=== PATIENT | female | born 1960 | race African-American/Black ===

== ENCOUNTER 2017-03-14 23:13 | Emergency (ER) | payer BC ==
[~2017-03-14] VITALS: Ht 165.1 cm; Wt 93.0 kg
[~2017-03-14 23:13] MED LIST: AMARYL4 MG PO; AMLODIPINE BESY10 MG PO; BENECALORI7.5 KCAL/1 PO; BISACODYL SUPP10 MG RECTAL; BUTALB-APAP-CA1 EACH PO; CARVEDILOL12.5 MG PO; CELEBREX 200 M200 M1 PO; CITRATE OF MAG296 ML PO; DIFLUCAN50 MG PO; GLIMEPIRIDE4 MG PO; HYDROCODONE-AP1 EAC6 PO; KEFLEX500 MG PO; LEVEMIR SUBQ; LIPITOR40 MG PO; LISINOPRIL5 MG PO; NITROGLYCERIN0.4 MG SUBLING; NITROSTAT0.4 MG SUBLING; PLAVIX 75 MG TA75 M1 PO; VIMPAT200 MG PO; XANAX 1 MG TABLE1 MG PO; ZOFRAN ODT4 MG PO
[2017-03-14 23:37] LABS: HEMATOCRIT 37.7 % (37.0-47.0); HEMOGLOBIN 12.9 gm/dL (12.0-15.0); MCH 25.8 pg (26.0-34.0); MCHC 34.3 g/dL (28.0-37.0); MCV 75.3 fL (80.0-100.0); MPV 7.8 fl. (7.2-11.1); NUCLEATED RBCS 0 /100WBC; PLATELET COUNT* 188 thou/uL (150-400); RDW-CV 14.3 % (10.5-14.5)
[2017-03-14 23:49] LABS: CALCIUM 8.6 mg/dL (8.5-10.1); CREATININE 0.9 mg/dL (0.6-1.3); POTASSIUM 3.8 mmol/L (3.5-5.1)
[2017-03-14 23:54] LABS: ALBUMIN 3.6 g/dL (3.4-5.0); TOTAL BILIRUBIN 0.4 mg/dL (<0.1-1.0); TOTAL PROTEIN 7.4 g/dL (6.4-8.2)
[2017-03-14 23:58] LABS: ABSOLUTE EOSINOPHILS 0.2 thou/uL (0.0-0.7); ABSOLUTE LYMPHOCYTES 0.7 thou/uL (0.8-5.3); ABSOLUTE MONOCYTES 0.3 thou/uL (0.0-1.2); ABSOLUTE NEUTROPHILS 8.8 thou/uL (1.6-8.1); ANISOCYTOSIS 1+; MICROCYTES 1+; PLATELET ESTIMATE ADEQUATE
[2017-03-15] LABS: INFLUENZA A ANTIGEN None Detected (None Detect); INFLUENZA B ANTIGEN None Detected (None Detect)
[2017-03-15] MEDS ORDERED: TUSSIONEX PENN115 ML PO (00:28)
[2017-03-15] MEDS ORDERED: ZOFRAN ODT4 MG PO (00:28)
[2017-03-15 00:53] VITALS: BP 143/61
== END 2017-03-15 00:56 | disposition home or self-care (01) ==
LOC: M.ERS 23:13
PROVIDERS: Emergency Medicine
DX: J06.9 Acute upper respiratory infection, unspecified (principal); I25.2 Old myocardial infarction; E11.9 Type 2 diabetes mellitus without complications; I10 Essential (primary) hypertension; Z90.710 Acquired absence of both cervix and uterus; Z98.890 Other specified postprocedural states; Z88.0 Allergy status to penicillin; Z88.6 Allergy status to analgesic agent

== ENCOUNTER 2017-10-12 19:21 | Emergency (ER) | payer BC ==
[~2017-10-12] VITALS: Ht 165.1 cm; Wt 95.3 kg
[~2017-10-12 19:21] MED LIST changes: +TUSSIONEX PENN115 ML PO
[2017-10-12] MEDS ORDERED: IBUPROFEN 600600 M1 PO (20:08)
[2017-10-12 20:22] VITALS: BP 178/91
== END 2017-10-12 20:24 | disposition home or self-care (01) ==
LOC: M.ERS 19:21
DX: S63.8X1A Sprain of other part of right wrist and hand, initial encounter (principal); G40.909 Epilepsy, unspecified, not intractable, without status epilepticus; I10 Essential (primary) hypertension; E11.9 Type 2 diabetes mellitus without complications; Z95.5 Presence of coronary angioplasty implant and graft; Z90.710 Acquired absence of both cervix and uterus; Z88.1 Allergy status to other antibiotic agents; Z88.6 Allergy status to analgesic agent; X50.9XXA Other and unspecified overexertion or strenuous movements or postures, initial encounter; Y93.89 Activity, other specified; Y92.89 Other specified places as the place of occurrence of the external cause; Y99.0 Civilian activity done for income or pay

== ENCOUNTER 2017-12-23 13:39 | Observation (INO) | payer BC ==
[~2017-12-23] VITALS: Ht 165.1 cm; Wt 95.7 kg
[~2017-12-23 13:39] MED LIST changes: +IBUPROFEN 600600 M1 PO
[2017-12-23 13:49] VITALS: BP 202/92
[2017-12-23 14:06] LABS: URINE BILIRUBIN NEGATIVE (Negative); URINE BLOOD 1+ (Negative); URINE CLARITY CLEAR; URINE COLOR YELLOW; URINE GLUCOSE-RANDOM NEGATIVE (Negative); URINE KETONES NEGATIVE (Negative); URINE LEUKOCYTES-REFLEX 1+ (Negative); URINE NITRITE-REFLEX NEGATIVE (Negative); URINE PROTEIN 2+ (Negative); URINE UROBILINOGEN 0.2 E.U./dl (0.2-1.0)
[2017-12-23] MEDS ORDERED: LISINOPRIL20 MG PO (14:06)
[2017-12-23 14:15] LABS: SQUAMOUS 0-3 Few /LPF (0-3)
[2017-12-23 14:15] LABS: ABSOLUTE BASOPHILS 0.1 thou/uL (0.0-0.2); ABSOLUTE EOSINOPHILS 0.3 thou/uL (0.0-0.7); ABSOLUTE LYMPHOCYTES 3.4 thou/uL (0.8-5.3); ABSOLUTE MONOCYTES 0.5 thou/uL (0.0-1.2); ABSOLUTE NEUTROPHILS 5.7 thou/uL (1.6-8.1); BASOPHILS 1.4 %; EOSINOPHILS 3.2 %; HEMATOCRIT 39.8 % (37.0-47.0); HEMOGLOBIN 13.3 gm/dL (12.0-15.0); LYMPHOCYTES 33.9 %; MCH 25.6 pg (26.0-34.0); MCHC 33.5 g/dL (28.0-37.0); MCV 76.4 fL (80.0-100.0); MPV 7.6 fl. (7.2-11.1); NUCLEATED RBCS 0 /100WBC; PLATELET COUNT* 208 thou/uL (150-400); POLYS 56.5 %; RBC 5.22 mil/uL (4.20-5.00); RDW-CV 14.7 % (10.5-14.5); WBC 10.1 thou/uL (4.0-11.0)
[2017-12-23 14:16] LABS: BACTERIA-REFLEX None Seen /HPF (None Seen); CASTS None Seen /LPF (None Seen); CRYSTALS None Seen /LPF (None Seen); MUCUS 4-6 Moderate strn/LPF (None Seen); URINE RBC 0-2 Rare /HPF (0-2); URINE WBC-REFLEX 0-5 Rare /HPF (0-5)
[2017-12-23 14:35] LABS: ANION GAP 5 mmol/L (7-16); BUN 13 mg/dL (7-18); CHLORIDE 103 mmol/L (98-107); CO2 29 mmol/L (21-32); CREATININE 0.8 mg/dL (0.6-1.3); GLUCOSE 105 mg/dL (70-99); POTASSIUM 3.4 mmol/L (3.5-5.1); SODIUM 137 mmol/L (136-145)
[2017-12-23 14:46] LABS: ALBUMIN 3.5 g/dL (3.4-5.0); ALKALINE PHOSPHATASE 95 U/L (46-116); LIPASE 105 U/L (73-393); MAGNESIUM 1.9 mg/dL (1.8-2.4); NT-PRO BRAIN NAT PEPTIDE 287 pg/mL (<300); SGOT 17 U/L (15-37); SGPT 19 U/L (30-65); TOTAL BILIRUBIN 0.2 mg/dL (<0.1-1.0); TOTAL PROTEIN 7.4 g/dL (6.4-8.2); TROPONIN-I LEVEL <0.06 ng/mL (<0.06)
--- NOTE | 2017-12-23 17:30 | EKG ---
[place] [address] ELECTROCARDIOGRAM REPORT Name: NANCY ESPINOZA Room: [place] [address] ADM IN [facility].#: [id number] Admission: 12/23/17 Attend Phys: Coretta Riggins Discharge: Date of : 56 Report #: [id number] THIS REPORT FOR: //name// [facility] ED Test Date: 2017-12-23 Test Time: 14:14:35 Pat Name: NANCY ESPINOZA Department: Room: [facility] Gender: F Radiation Safety Officer: Rubin PAULINO : 1960 Requested By: Jimy Elliott Order Number: [id number] MD: Beltran Laird Measurements Intervals [place] Rate: 66 P: 30 WV: 218 QRS: 10 QRSD: 88 T: 205 QT: 396 QTc: 415 Interpretive Statements Sinus rhythm Prolonged WV interval Probable left atrial enlargement LVH with secondary repolarization abnormality Anterior ST elevation, probably due to LVH Compared to ECG 06/25/2016 09:09:55 Left ventricular hypertrophy now present Early repolarization now present ST (T wave) deviation now present T-wave abnormality no longer present Electronically Signed On 12-23-2017 17:30:24 CDT by Beltran Laird [email or web address] <ELECTRONICALLY SIGNED> By: Beltran Laird MD, FAC 12/23/17 1730 1414 1414 Beltran Laird MD, [facility] /EPI
[2017-12-23 20:47] VITALS: BP 192/78
[2017-12-23 21:00] VITALS: BP 188/89
[2017-12-24] VITALS (7 sets, daily range): BP systolic 139–173; BP diastolic 61–72
--- NOTE | 2017-12-24 16:55 | 2DMMODE ---
[place] [address] 2 D/M-MODE ECHOCARDIOGRAM Name: NANCY ESPINOZA Room: [address] IN [facility]#: [id number] Admission: 12/23/17 Attend Phys: Chriss Hull Discharge: Date of : 56 Date of Service: 12/24/17 1655 Report #: [id number] THIS REPORT FOR: //name// APPROVED REPORT Study performed: 12/24/2017 16:13:27 EXAM: Comprehensive 2D, Doppler, and color-flow Echocardiogram Patient Location: In-Patient Room #: [facility] Status: routine BSA: 2.02 HR: 69 bpm BP: 150/68 mmHg Rhythm: NSR Other Information Study Quality: Good Indications CAD Hypertension/HDD 2D Dimensions IVSd: 15.16 (7-11mm) LVOT Diam: 21.01 (18-24mm) LVDd: 43.57 mm PWd: 13.36 (7-11mm) Ascending Ao: 30.05 (22-36mm) LVDs: 28.06 (25-40mm) Aortic Root: 33.15 mm Volumes Left Atrial Volume (Systole) LA ESV Index: 41.40 mL/m2 Aortic Valve AoV Peak Jefferson.: 1.67 m/s AO Peak Gr.: 11.13 mmHg LVOT Max P.75 mmHg AO Mean Gr.: 6.04 mmHg LVOT Mean P.00 mmHg LVOT Max V: 1.09 m/s AO V2 VTI: 34.27 cm LVOT Mean V: 0.63 m/s JATINDER (VTI): 2.24 cm2 LVOT V1 VTI: 22.11 cm Mitral Valve MV Decel. Time: 272.63 ms MV PHT: 79[place]06 [place] [address] 2 D/M-MODE ECHOCARDIOGRAM Name: NANCY ESPINOZA Room: [address]#: [id number] Admission: 12/23/17 Attend Phys: Chriss Hull Discharge: Date of : 56 Date of Service: 12/24/17 1655 Report #: [id number] MVA (PHT): 2.78 cm2 TDI Medial E' Jefferson.: 0.07 m/s Lateral E' Jefferson.: 0.09 m/s Pulmonary Valve PV Peak Jefferson.: 0.93 m/s PV Peak Gr.: 3.43 mmHg Left Ventricle The left ventricle is normal size. There is normal LV segmental wall motion. Moderate concentric left ventricular hypertrophy. Left ventricular systolic function is normal. The left ventricular ejection fraction is within the normal range. LVEF is 55-60%. Grade I - abnormal relaxation pattern. Right Ventricle The right ventricle is normal size. The right ventricular systolic function is normal. Atria Left atrium is mildly dilated. The right atrium size is normal. Aortic Valve The aortic valve is normal in structure. No aortic regurgitation is present. There is no aortic valvular stenosis. Mitral Valve There is mitral annular calcification. Mild mitral regurgitation. No evidence of mitral valve stenosis. Tricuspid Valve The tricuspid valve is normal in structure. There is no tricuspid valve regurgitation noted. Unable to assess PA pressure. Pulmonic Valve The pulmonary valve is normal in structure. There is no pulmonic valvular regurgitation. Great Vessels The aortic root is normal in size. IVC is normal in size and collapses >50% with inspiration. Pericardium There [place] [address] 2 D/M-MODE ECHOCARDIOGRAM Name: NANCY ESPINOZA Room: [address] IN [facility]#: [id number] Admission: 12/23/17 Attend Phys: Chriss Hull Discharge: Date of : 56 Date of Service: 12/24/17 1655 Report #: [id number] <Conclusion> The left ventricle is normal size. Moderate concentric left ventricular hypertrophy. Left ventricular systolic function is normal. The left ventricular ejection fraction is within the normal range. LVEF is 55-60%. Grade I - abnormal relaxation pattern. The right ventricle is normal size. Left atrium is mildly dilated. The aortic valve is normal in structure. There is mitral annular calcification. Mild mitral regurgitation. No evidence of mitral valve stenosis. The tricuspid valve is normal in structure. IVC is normal in size and collapses >50% with inspiration. There is no pericardial effusion. There is normal LV segmental wall motion. <ELECTRONICALLY SIGNED> By: Beltran Laird MD, FACC 12/24/17 1655 54 54 Beltran Laird MD, FACC /INF
[2017-12-24] MEDS ORDERED: MAXZIDE-25 MG1 EACH PO (17:09)
--- NOTE | 2017-12-25 16:04 | CON ---
[address] [address] CONSULTATION Name: ESPINOZANANCY Lex Room: [address] Angelo Drake#: [id number] Admission: 12/23/17 Attend Phys: Coretta Riggins Discharge: 12/24/17 Date of : 56 Report #: [id number] THIS REPORT FOR: //name// CC: Monisha Hull DATE OF SERVICE: 12/24/2017 INDICATION: Arm pain and hypertension. HISTORY OF PRESENT ILLNESS: The patient is a very pleasant 57-year-old female with history of hypertension and coronary artery disease. She underwent percutaneous coronary intervention with 3 stents placed at [facility] in 2014 after an episode of acute coronary syndrome. She has had no further intervention or evaluation since that time. Risk factors include hypertension and type 2 diabetes. The patient was admitted yesterday with complaints of numbness and tingling in her left arm and hand with some shortness of breath. At the time of her initial evaluation, she was found to be quite hypertensive. She was given sublingual nitroglycerin and ultimately placed on nitro paste. Her blood pressure has improved. She is not having nor has she had chest pain. She denies orthopnea or paroxysmal nocturnal dyspnea. She is without other cardiac complaint at this time. PAST MEDICAL HISTORY: 1. Coronary artery disease with percutaneous coronary intervention in 2014. 2. Hypertension. 3. Hypertensive heart disease. 4. Chronic diastolic heart failure. 5. Type 2 diabetes mellitus. 6. Epilepsy. PAST SURGICAL HISTORY: 1. Right ankle surgery. 2. Hysterectomy. 3. Carpal tunnel release on the left. FAMILY HISTORY: Noncontributory. SOCIAL HISTORY: The patient smokes cigarettes. She does not drink alcohol. ALLERGIES: ERYTHROMYCIN, MORPHINE. HOME MEDICATIONS: Glimepiride 8 mg daily, Nitrostat p.r.n., lisinopril 20 [place] [address] CONSULTATION Name: NANCY ESPINOZA [address] [id number] Admission: 12/23/17 Attend Phys: Coretta Riggins Discharge: 12/24/17 Date of : 56 Report #: [id number] daily, Vimpat 200 mg b.i.d., carvedilol 12.5 mg b.i.d., Levemir 50 units at bedtime. PHYSICAL EXAMINATION: VITAL SIGNS: Blood pressure 150/68, pulse 60 and regular. GENERAL: This is a very pleasant lady in no distress. Mood and affect appropriate. HEENT: Extraocular muscles intact. Mucous membranes are moist. NECK: Shows no jugular venous distention. There are no carotid bruits. CHEST: Reveals clear lung pickard without wheezes, rales or rhonchi. CARDIOVASCULAR: Reveals regular rhythm with normal S1 and S2. I do not appreciate gallop or murmur. ABDOMEN: Reveals normal bowel sounds. The abdomen is soft, nontender. EXTREMITIES: Shows no edema. The peripheral pulses are 2+ and easily palpable. SKIN: Warm and dry. LABORATORY DATA: A 12-lead EKG shows sinus rhythm with left ventricular hypertrophy with repolarization abnormalities. Labs are reviewed. Troponin less than 0.06 on 3 separate occasions. IMPRESSION AND RECOMMENDATIONS: 1. Coronary artery disease, presently stable. I do not see symptoms to suggest acute coronary syndrome. Continue medications as outlined above. I would like to obtain outpatient stress testing in the near future. 2. Hypertension. The patient's blood pressure significantly elevated on admission. I would add Maxzide 25 one tablet daily to her current regimen and follow up as an outpatient. 3. Diabetes per primary physician. 4. Coronary artery disease, presently stable. Continue daily aspirin. 5. History of epilepsy. She is on Vimpat. 6. Hypertensive heart disease with chronic diastolic heart failure, presently compensated. Follow up as outpatient with Cardiology. <ELECTRONICALLY SIGNED> By: Sohan Ruffin MD, FACC 12/25/17 1604 1627 [id number] Ruffin MD, FACC /nt
== END 2017-12-24 18:38 | disposition home or self-care (01) ==
LOC: M.ERS 13:39 → M.2W 15:12 → M.TBA-ER 15:12 → M.2W 20:02
PROVIDERS: Emergency Medicine Emergency Medical Services; ADMIT Internal Medicine
DX: I16.1 Hypertensive emergency (principal); I25.110 Atherosclerotic heart disease of native coronary artery with unstable angina pectoris; I11.0 Hypertensive heart disease with heart failure; I50.32 Chronic diastolic (congestive) heart failure; E11.9 Type 2 diabetes mellitus without complications; I25.2 Old myocardial infarction; G40.909 Epilepsy, unspecified, not intractable, without status epilepticus; F17.210 Nicotine dependence, cigarettes, uncomplicated; Z98.890 Other specified postprocedural states; Z90.710 Acquired absence of both cervix and uterus; Z95.5 Presence of coronary angioplasty implant and graft; Z79.4 Long term (current) use of insulin

== ENCOUNTER 2018-04-12 06:56 | Emergency (ER) | payer BC ==
[~2018-04-12] VITALS: Ht 162.6 cm; Wt 95.3 kg
[~2018-04-12 06:56] MED LIST changes: +LISINOPRIL20 MG PO; +MAXZIDE-25 MG1 EACH PO
[2018-04-12] MEDS ORDERED: LEXAPRO 10 MG T10 M1 PO (07:19)
[2018-04-12 07:47] LABS: CALCIUM 9.4 mg/dL (8.5-10.1); POTASSIUM 3.9 mmol/L (3.5-5.1)
[2018-04-12 07:52] LABS: INFLUENZA A ANTIGEN None Detected (None Detect); INFLUENZA B ANTIGEN None Detected (None Detect)
[2018-04-12] MEDS ORDERED: ZOFRAN ODT4 MG DISSOLVE (08:31)
[2018-04-12] MEDS ORDERED: TESSALON PERLE100 MG PO (08:31)
[2018-04-12 08:57] VITALS: BP 160/73
== END 2018-04-12 08:50 | disposition home or self-care (01) ==
LOC: M.ERS 06:56
PROVIDERS: Emergency Medicine Emergency Medical Services
DX: B34.9 Viral infection, unspecified (principal); K52.9 Noninfective gastroenteritis and colitis, unspecified; G43.909 Migraine, unspecified, not intractable, without status migrainosus; E11.9 Type 2 diabetes mellitus without complications; I10 Essential (primary) hypertension; F41.9 Anxiety disorder, unspecified; I25.2 Old myocardial infarction; Z90.49 Acquired absence of other specified parts of digestive tract; Z90.710 Acquired absence of both cervix and uterus; Z95.5 Presence of coronary angioplasty implant and graft; Z88.1 Allergy status to other antibiotic agents; Z88.5 Allergy status to narcotic agent

== ENCOUNTER 2018-10-10 14:48 | Emergency (ER) | payer BC ==
[~2018-10-10] VITALS: Ht 162.6 cm; Wt 113.4 kg
[~2018-10-10 14:48] MED LIST changes: +LEXAPRO 10 MG T10 M1 PO; +NORFLEX100 MG PO; +TESSALON PERLE100 MG PO; +ZOFRAN ODT4 MG DISSOLVE
[2018-10-10] MEDS ORDERED: XANAX 1 MG TABLE1 MG PO (15:01)
[2018-10-10] MEDS ORDERED: NORCO 5-325 TA1 EAC1 PO (15:01)
[2018-10-10 15:15] VITALS: BP 206/90
== END 2018-10-10 15:15 | disposition home or self-care (01) ==
LOC: M.ERS 14:48
DX: S00.211A Abrasion of right eyelid and periocular area, initial encounter (principal); G40.909 Epilepsy, unspecified, not intractable, without status epilepticus; F41.9 Anxiety disorder, unspecified; I10 Essential (primary) hypertension; E11.9 Type 2 diabetes mellitus without complications; Z90.710 Acquired absence of both cervix and uterus; Z95.5 Presence of coronary angioplasty implant and graft; Z90.49 Acquired absence of other specified parts of digestive tract; Z88.1 Allergy status to other antibiotic agents; Z79.4 Long term (current) use of insulin; Z88.5 Allergy status to narcotic agent; W26.8XXA Contact with other sharp object(s), not elsewhere classified, initial encounter; Y93.89 Activity, other specified; Y92.89 Other specified places as the place of occurrence of the external cause; Y99.8 Other external cause status

== ENCOUNTER 2018-11-09 10:12 | Emergency (ER) | payer BC ==
[~2018-11-09] VITALS: Ht 152.4 cm; Wt 113.4 kg
[~2018-11-09 10:12] MED LIST changes: +NORCO 5-325 TA1 EAC1 PO
[2018-11-09] MEDS ORDERED: VIMPAT200 MG PO (10:41)
[2018-11-09 10:50] LABS: ABSOLUTE BASOPHILS 0.1 thou/uL (0.0-0.2); ABSOLUTE EOSINOPHILS 0.3 thou/uL (0.0-0.7); ABSOLUTE LYMPHOCYTES 2.8 thou/uL (0.8-5.3); ABSOLUTE MONOCYTES 0.6 thou/uL (0.0-1.2); ABSOLUTE NEUTROPHILS 6.5 thou/uL (1.6-8.1); EOSINOPHILS 2.5 %; HEMOGLOBIN 13.7 gm/dL (12.0-15.0); LYMPHOCYTES 27.6 %; MCH 25.9 pg (26.0-34.0); MCHC 33.4 g/dL (28.0-37.0); MCV 77.4 fL (80.0-100.0); MONOCYTES 5.8 %; MPV 7.7 fl. (7.2-11.1); NUCLEATED RBCS 0 /100WBC; PLATELET COUNT* 224 thou/uL (150-400); POLYS 63.1 %; RBC 5.29 mil/uL (4.20-5.00); RDW-CV 14.7 % (10.5-14.5); WBC 10.2 thou/uL (4.0-11.0)
[2018-11-09] MEDS ORDERED: TRESIBA100 UNIT/1 SUBQ (10:51)
[2018-11-09 10:58] LABS: CALCIUM 9.3 mg/dL (8.5-10.1); CREATININE 0.9 mg/dL (0.6-1.3)
[2018-11-09 11:08] LABS: ALBUMIN 3.7 g/dL (3.4-5.0); TOTAL BILIRUBIN 0.2 mg/dL (<0.1-1.0); TOTAL PROTEIN 7.8 g/dL (6.4-8.2)
[2018-11-09 11:10] LABS: ACETAMINOPHEN < 2 ug/mL (10-30); ALCOHOL < 10 mg/dL (<10); SALICYLATE 3.3 mg/dL (2.8-20.0)
[2018-11-09 11:56] LABS: URINE BILIRUBIN NEGATIVE (Negative); URINE BLOOD TRACE (Negative); URINE CLARITY CLEAR; URINE COLOR YELLOW; URINE GLUCOSE-RANDOM NEGATIVE (Negative); URINE KETONES NEGATIVE (Negative); URINE LEUKOCYTES-REFLEX NEGATIVE (Negative); URINE NITRITE-REFLEX NEGATIVE (Negative); URINE PROTEIN 2+ (Negative); URINE SPECIFIC GRAVITY 1.015 (1.005-1.030); URINE UROBILINOGEN 0.2 E.U./dl (0.2-1.0)
[2018-11-09 12:03] LABS: BACTERIA-REFLEX 1-9 Few /HPF (None Seen); CASTS None Seen /LPF (None Seen); MUCUS 0-3 Light strn/LPF (None Seen); SQUAMOUS 4-10 Moderate /LPF (0-3); URINE RBC 0-2 Rare /HPF (0-2); URINE WBC-REFLEX 0-5 Rare /HPF (0-5)
[2018-11-09 12:04] LABS: AMP/METHAMP Negative (Negative); BARBITURATES Negative (Negative); BENZODIAZEPINES Negative (Negative); COCAINE Negative (Negative); CRYSTALS None Seen /LPF (None Seen); METHADONE Negative (Negative); OPIATES Negative (Negative); PCP Negative (Negative); THC Negative (Negative)
[2018-11-09 13:36] VITALS: BP 188/82
[2018-11-11] MEDS ORDERED: CATAPRES0.1 MG PO (10:37)
[2018-11-11] MEDS ORDERED: LANTUS100 UNIT/M SUBQ (10:40)
[2018-11-11] MEDS ORDERED: AMARYL4 MG PO (10:41)
== END 2018-11-09 13:36 ==
LOC: M.ERS 10:12
PROVIDERS: Family Medicine
DX: R45.851 Suicidal ideations (principal); I10 Essential (primary) hypertension; F41.9 Anxiety disorder, unspecified; I25.2 Old myocardial infarction; E11.9 Type 2 diabetes mellitus without complications; Z90.49 Acquired absence of other specified parts of digestive tract; Z95.2 Presence of prosthetic heart valve; Z79.4 Long term (current) use of insulin; Z88.1 Allergy status to other antibiotic agents; Z88.5 Allergy status to narcotic agent; Z90.710 Acquired absence of both cervix and uterus

== ENCOUNTER 2019-01-03 17:59 | Emergency (ER) | payer BC ==
[~2019-01-03] VITALS: Ht 165.1 cm; Wt 96.2 kg
[~2019-01-03 17:59] MED LIST changes: +CATAPRES0.1 MG PO; +LANTUS100 UNIT/M SUBQ; +TRESIBA100 UNIT/1 SUBQ
[2019-01-03 18:22] LABS: ABSOLUTE BASOPHILS 0.1 thou/uL (0.0-0.2); ABSOLUTE EOSINOPHILS 0.2 thou/uL (0.0-0.7); ABSOLUTE LYMPHOCYTES 3.5 thou/uL (0.8-5.3); ABSOLUTE MONOCYTES 0.6 thou/uL (0.0-1.2); ABSOLUTE NEUTROPHILS 6.5 thou/uL (1.6-8.1); BASOPHILS 1.1 %; EOSINOPHILS 2.1 %; HEMOGLOBIN 14.7 gm/dL (12.0-15.0); MCH 25.9 pg (26.0-34.0); MCHC 34.2 g/dL (28.0-37.0); MCV 75.7 fL (80.0-100.0); MONOCYTES 5.7 %; MPV 7.7 fl. (7.2-11.1); NUCLEATED RBCS 0 /100WBC; PLATELET COUNT* 231 thou/uL (150-400); POLYS 59.1 %; RBC 5.67 mil/uL (4.20-5.00); RDW-CV 14.7 % (10.5-14.5)
[2019-01-03 18:31] LABS: CALCIUM 10.1 mg/dL (8.5-10.1); POTASSIUM 3.8 mmol/L (3.5-5.1)
[2019-01-03 18:36] LABS: ALBUMIN 3.9 g/dL (3.4-5.0); TOTAL BILIRUBIN 0.2 mg/dL (<0.1-1.0); TOTAL PROTEIN 8.4 g/dL (6.4-8.2)
[2019-01-03 18:39] LABS: SALICYLATE 2.8 mg/dL (2.8-20.0)
[2019-01-03 18:40] LABS: ACETAMINOPHEN < 2 ug/mL (10-30); ALCOHOL < 10 mg/dL (<10)
[2019-01-03 18:52] LABS: URINE BILIRUBIN NEGATIVE (Negative); URINE BLOOD 1+ (Negative); URINE CLARITY CLEAR; URINE COLOR YELLOW; URINE GLUCOSE-RANDOM NEGATIVE (Negative); URINE KETONES NEGATIVE (Negative); URINE LEUKOCYTES-REFLEX NEGATIVE (Negative); URINE NITRITE-REFLEX NEGATIVE (Negative); URINE PROTEIN 2+ (Negative); URINE UROBILINOGEN 0.2 E.U./dl (0.2-1.0)
[2019-01-03 19:00] LABS: AMP/METHAMP Negative (Negative); BACTERIA-REFLEX None Seen /HPF (None Seen); BARBITURATES Negative (Negative); BENZODIAZEPINES Negative (Negative); CASTS None Seen /LPF (None Seen); COCAINE Negative (Negative); CRYSTALS None Seen /LPF (None Seen); METHADONE Negative (Negative); OPIATES Negative (Negative); PCP Negative (Negative); SQUAMOUS 4-10 Moderate /LPF (0-3); THC Negative (Negative); URINE RBC 3-10 Few /HPF (0-2); URINE WBC-REFLEX None Seen /HPF (0-5)
[2019-01-04 08:25] VITALS: BP 129/69
--- NOTE | 2019-01-04 13:32 | EKG ---
[place] [address] ELECTROCARDIOGRAM REPORT Name: NANCY ESPINOZA Room: [facility]#: [id number] Admission: 01/03/19 Attend Phys: Discharge: 01/04/19 Date of : 56 Report #: [id number] THIS REPORT FOR: //name// [facility] ED Test Date: 2019-01-03 Test Time: 18:17:12 Pat Name: NANCY ESPINOZA Department: Room: Gender: F [employer] Developer: ZAYRA : 1960 Requested By: Luis Naylor Order Number: [id number] MD: Sohan Ruffin Measurements Intervals [place] Rate: 88 P: 43 CT: 215 QRS: 5 QRSD: 93 T: QT: 348 QTc: 421 Interpretive Statements Sinus rhythm Prolonged CT interval Left atrial enlargement LVH with secondary repolarization abnormality Anterior Q waves, possibly due to LVH Compared to ECG 12/23/2017 14:14:35 Q waves now present ST (T wave) deviation no longer present Electronically Signed On 01-04-2019 13:32:00 CDT by Sohan Ruffin [email or web address] <ELECTRONICALLY SIGNED> By: Sohan Ruffin MD, FACC 01/04/19 1332 16 Sohan Ruffin MD, FACC /EPI
== END 2019-01-04 08:25 | disposition still patient (30) ==
LOC: M.ERS 17:59
PROVIDERS: Family Medicine
DX: T39.1X2A Poisoning by 4-Aminophenol derivatives, intentional self-harm, initial encounter (principal); I10 Essential (primary) hypertension; E11.9 Type 2 diabetes mellitus without complications; Z88.1 Allergy status to other antibiotic agents; Z88.5 Allergy status to narcotic agent; Z79.4 Long term (current) use of insulin; Y92.89 Other specified places as the place of occurrence of the external cause